=== PATIENT | male | born 1990 | race Caucasian/White ===

== ENCOUNTER 2024-05-22 16:24 | Emergency (ER) | payer MEDICAID, SELFPAY ==
[2024-05-22 16:41] VITALS: BP 158/80; PULSE 74; RESP 18; TEMP 36.8; O2SAT 98
--- NOTE | 2024-05-22 17:27 | DI.RAD_ITS ---
Exam(s) XR SHOULDER LT COMPLETE 2+V EXAM: XR SHOULDER LT COMPLETE 2+V CLINICAL HISTORY: L shoulder pain. TECHNIQUE: 2D digital imaging was performed. Five views. COMPARISON: No exams were available for comparison FINDINGS: BONES: No acute fracture is present. No bony destructive lesion is seen. JOINTS: No dislocation present. SOFT TISSUE: Normal. IMPRESSION: Unremarkable radiographs of the left shoulder. DATA REPOSITORY: RADIATION DOSE DELIVERED:
--- NOTE | 2024-05-22 17:58 | ED.GENADUL_ITS ---
Discharge Plan Disposition Patient Disposition: Home Condition: Stable Discharge Details Clinical Impression: Rotator cuff arthropathy of left shoulder Primary Care Provider: Garett Lujan ED Provider: Mateus Abad Home Meds and New Rx's Prescriptions: No Action No Known Home Meds Discharge Instructions Instructions: Rotator cuff injury Additional Instructions: You were seen in the emergency department for your rotator cuff arthropathy of your left shoulder. Please use therapeutic dosing of Tylenol (acetamenophen) & Advil (ibuprofen) in an alternating fashion as follows: Take 1000mg of Tylenol every 6 hours without missing doses- that is 4 times per day. Tow in between the Tylenol dosings, take 400-600mg of Advil also on a 6 hour schedule, that is also 4 times per day. The daily maximum dosing of Tylenol is 4000mg, and the daily maximum dosing of Advil is 2400mg. This is safe to do for weeks. Please note that some common cold medications & prescription pain medications may contain acetamenophen and you need to read OTC drug labels and factor that in to maximum daily dosings. Use the provided shoulder immobilizer sparsely but you need to come out of it and perform pendulum exercises as we discussed at least a dozen times per day. I have placed you on the orthopedics follow-up list they should be contacting you about scheduling a specialty evaluation. Please rest and ice the shoulder frequently. Return for signs of neurovascular compromise to the entire left arm Referrals: [facility] [Provider Group] Discharge Data Discharge Date/Time-TO BE ENTERED AT DEPARTURE: 05/22/24 18:52 HPI General Date/Time Provider Initiated Documentation: 05/22/24 16:43 . HPI Narrative: 34 year-old male presents to ED today by POV/ambulating with a chief complaint of L shoulder pain with onset today while lifting a panel of sheetrock- felt his shoulder give out. Patient is R-hand dominant. Quality described as severe pain diffusely all around the shoulder with weakness and limited range of motion to pain, no radiation to deformity, bruising, skin changes, redness, numbness or tingling down the arm, midline neck pain, trauma, endorses focal pain and mild swelling around the scapula and trapezius muscle. Severity is described as severe. Palliating factors include tried icing it and taking Tylenol and ibuprofen. Provoking factors include movement especially lifting his arm. Events leading up to the incident/Associated Symptoms: Patient states he had an old injury many years ago that limited his overhead range of motion and this 1 is now limiting his motion out in front of the body. Patient not anticoagulated. Related Data Home Medications ?Medication ?Instructions ?Recorded ?Confirmed Unknown [No Known Home Meds] 05/22/24 05/22/24 Allergies Allergy/AdvReac Type Severity Reaction Status Date / Time Penicillins Allergy Severe Swelling/Ed Unverified 05/22/24 16:43 aissatou venom-honey bee (bee venom Allergy Intermediate Anaphylaxsi Unverified 05/22/24 16:43 (honey bee)) s cat Allergy Intermediate Skin Rash Uncoded 05/22/24 16:43 General Stated Complaint: Orthopedic CARITO: 4 Review of Systems All systems reviewed & are unremarkable except as noted in HPI and below Exam Narrative Exam Narrative: GENERAL APPEARANCE: Well-nourished, non-toxic, awake and alert, atraumatic, no acute distress. SKIN: Warm, pink, dry, intact, without rashes/lesions/ulcerations. HEAD: Normocephalic, atraumatic, normal hair distribution for gender/age. EYES: Normal conjunctiva, no exudates on lids/lashes. ENT: Nares patent, no circumoral cyanosis, no facial swelling NECK: Supple, trachea midline, painless cervical ROM. LUNGS/CHEST: Non-labored respirations, normal A/P diameter, symmetrical expansion, no chest wall deformity HEART (CV/PV): No peripheral edema, no JVD. ABDOMEN: Soft, non-distended, no guarding. MSK: Normal ROM, no swelling/deformity to bilateral UEs or LEs, moving all extremities without weakness, no cyanosis, spine midline without tenderness, normal curvature. L SHOULDER: No squared off appearance or deformity of shoulder, diffuse tenderness all around the shoulder including the scapula and trapezius muscle, deltoid insertion tenderness, sensation intact down the arm, left radial pulse 2+, physical medicine specialist strength 5/5, Speed's Test positive, patient can barely pronate for empty can testing NEURO: Mental Status AAOx4 - alert to person, place, time, events No facial droop, no forehead involvement. Motor: No focal weakness - strength 5/5 in bilateral LEs and R UE, proximal and distal, symmetric. Sensory: sensation intact to light touch globally. Gait normal: patient ambulated without ataxia into ED room. PSYCH: euthymic, cooperative, pleasant, appropriate speech Course Vital Signs Vital signs: Vital Signs Temperature 36.8 C 05/22/24 16:41 Pulse 74 05/22/24 16:41 Respiratory Rate 18 05/22/24 16:41 Blood Pressure 158/80 H 05/22/24 16:41 Pulse Oximetry 98 05/22/24 16:41 Temperature 36.8 C 05/22/24 16:41 Temperature Source Oral 05/22/24 16:41 Pulse 74 05/22/24 16:41 Respiratory Rate 18 05/22/24 16:41 Blood Pressure 158/80 H 05/22/24 16:41 Blood Pressure Position Sitting 05/22/24 16:41 Pulse Oximetry 98 05/22/24 16:41 Oxygen Delivery Method Room Air 05/22/24 16:41 Oxygen Flow Rate 0 05/22/24 16:41 Pain Level 6 05/22/24 16:41 Medical Decision Making This dictation utilizes [id number] dictation software and may contain unedited grammatical errors. 34 year-old male presents to ED today by POV/ambulating with a chief complaint of L shoulder pain with onset today while lifting a panel of sheetrock- felt his shoulder give out. Patient is R-hand dominant. Quality described as severe pain diffusely all around the shoulder with weakness and limited range of motion to pain, no radiation to deformity, bruising, skin changes, redness, numbness or tingling down the arm, midline neck pain, trauma, endorses focal pain and mild swelling around the scapula and trapezius muscle. Severity is described as severe. Palliating factors include tried icing it and taking Tylenol and ibuprofen. Provoking factors include movement especially lifting his arm. Events leading up to the incident/Associated Symptoms: Patient states he had an old injury many years ago that limited his overhead range of motion and this 1 is now limiting his motion out in front of the body. Patients' medical history: [ ]. Family and social history: [ ]. Pertinent exam findings / vital signs include L SHOULDER: No squared off appearance or deformity of shoulder, diffuse tenderness all around the shoulder including the scapula and trapezius muscle, deltoid insertion tenderness, sensation intact down the arm, left radial pulse 2+, physical medicine specialist strength 5/5, Speed's Test positive, patient can barely pronate for empty can testing. Differential / pathologies of concern include rotator cuff arthropathy, severe sprain, unlikely fracture, not neurovascular compromise. Diagnostic studies of: -XR L shoulder-shows no acute fracture. Interventions of: -Shoulder immobilizer but counseled this was only for comfort for the first couple days and he needs to remove this often at least a dozen times per day for pendulum exercises, recommend RICE therapy and therapeutic dosing Tylenol and ibuprofen -Placed on Ortho follow-up list. ED Course/Assessment/Plan: 34-year-old male presents with left shoulder rotator cuff arthropathy, negative for fracture on x-ray, clinically no signs of neurovascular compromise, needs follow-up with orthopedics, recommend RICE therapy and therapeutic dosing of Tylenol or Profen, strict return criteria for signs of infection or neurovascular compromise. Findings not consistent with severe trauma, neurovascular compromise. Disposition of rotator cuff arthropathy of left shoulder. Patient verbalized understanding of the plan and return to ED criteria and engaged in shared decision making. Medical Records Medical records reviewed: Yes I reviewed the patient's medical records. Imaging Data Radiologic Study: Attestation: I personally reviewed and interpreted this imaging study as follows: Imaging: X-Ray Radiologist's impression: EXAM: XR SHOULDER LT COMPLETE 2+V CLINICAL HISTORY: L shoulder pain. TECHNIQUE: 2D digital imaging was performed. Five views. COMPARISON: No exams were available for comparison FINDINGS: BONES: No acute fracture is present. No bony destructive lesion is seen. JOINTS: No dislocation present. SOFT TISSUE: Normal. IMPRESSION: Unremarkable radiographs of the left shoulder. Quality:SDOH Health Related Social Needs: No Data to Display PFSH All Active Problems (Updated 05/22/24 @ 18:18 by MARJ Bedoya) Rotator cuff arthropathy of left shoulder (Acute) Sprain of anterior cruciate ligament of left knee (Chronic) Unspecified tear of unspecified meniscus, current injury, left knee, subsequent encounter (Chronic) Social History Smoking/Tobacco Use Status: Current every day Tobacco Type: cigarettes Smoking risk assessment performed?: Yes Drug use: Never Substance use type: does not use Do you feel safe in your relationship?: Yes
[2024-05-22 18:52] VITALS: PULSE 77; RESP 16; O2SAT 100
== END 2024-05-22 18:52 | disposition home or self-care (01) ==
PROVIDERS: Emergency Provider Physician Assistant; PCP Orthopaedic Surgery
DX: M12.812 Other specific arthropathies, not elsewhere classified, left shoulder (principal); F17.210 Nicotine dependence, cigarettes, uncomplicated; X50.0XXA Overexertion from strenuous movement or load, initial encounter; Y93.89 Activity, other specified; Y92.69 Other specified industrial and construction area as the place of occurrence of the external cause; Y99.0 Civilian activity done for income or pay
CPT/HCPCS: 99283; 73030

== ENCOUNTER 2024-06-19 10:38 | Outpatient (CLI) | payer MEDICAID, SELFPAY ==
--- NOTE | 2024-06-19 09:45 | DI.MRI_ITS ---
Exam(s) MR UPPER JOINT LT WO EXAM: MR UPPER JOINT LT WO CLINICAL HISTORY: L SHOULDER INJURY,traumatic tear lt rotator cuff,s46.012a. TECHNIQUE: Multiplanar multisequence MRI was performed. COMPARISON: CR XR SHOULDER LT COMPLETE 2+V from 05/22/2024 FINDINGS: BONES: There is no fracture or contusion pattern. JOINTS: The acromioclavicular joint is normal. The glenohumeral joint is normal. TENDONS: Supraspinatus: Unremarkable. Infraspinatus: Unremarkable. Subscapularis: Unremarkable. Teres [place]: Unremarkable. Biceps and [place]: Unremarkable. MUSCLES: Unremarkable. GLENOID LABRUM: Unremarkable on this noncontrast examination. SOFT TISSUES: Unremarkable. LIGAMENTS: Unremarkable. OTHER: There is a small amount of fluid seen in the subacromial bursa. IMPRESSION: 1. No evidence of a rotator cuff or labral tear on this noncontrast examination. 2. Small amount of fluid seen in the subacromial bursa. DATA REPOSITORY:
== END 2024-06-19 10:58 ==
LOC: DI 10:39
PROVIDERS: Visit Provider Student in an Organized Health Care Education/Training Program
DX: S46.012A Strain of muscle(s) and tendon(s) of the rotator cuff of left shoulder, initial encounter (principal); X58.XXXA Exposure to other specified factors, initial encounter
CPT/HCPCS: 73221

== ENCOUNTER 2024-12-19 19:32 | Emergency (ER) | payer MEDICAID, SELFPAY ==
[2024-12-19 19:33] VITALS: BP 158/88; PULSE 68; RESP 20; TEMP 36.7; O2SAT 97
--- NOTE | 2024-12-19 19:53 | ED.GENADUL_ITS ---
Discharge Plan Disposition Patient Disposition: Home Condition: Stable Discharge Details Clinical Impression: Laceration of cheek, left Primary Care Provider: Unknown,Unknown ED Provider: Debra Sellers Home Meds and New Rx's Prescriptions: No Action No Known Home Meds Discharge Instructions Instructions: Laceration Repair With Glue ED, Head injury observation in adults Additional Instructions: Laceration was closed with Dermabond or tissue adhesive today. This will slough off on its own in about 4 to 6 days. Do not scrub at or pick at the area. Keep clean and dry. Return to the ER for any signs of infection including increased redness, red streaks drainage swelling fever or increased pain. Follow up with primary care provider in 3-5 days. Return to ED sooner if any worsening vomiting, headache, blurry vision, confusion or concerns. You were given a tetanus booster today. Thank you for allowing us to care Continue to apply ice for 20 minutes up to 3 times daily as needed Stand Alone Forms: Work Release HPI General Mode of arrival: ambulatory . Date/Time Provider Initiated Documentation: 12/19/24 19:40 . Limitations to Documentation: no limitations . Information obtained by: patient, RN notes reviewed and old records reviewed . HPI Narrative: 34-year-old male presents to the ER with a chief complaint of left cheek injury. Patient stepped in a hole tripped hitting the left side of his face on the backside of a lawnmower. Denies any loss of consciousness, denies any visual disturbances denies any headache. He reports that it did bleed initially. Bleeding is controlled upon arrival. He does have some surrounding ecchymosis and swelling to the area. He has a small 1 cm laceration which is horizontal and linear. Small amount of redness and swelling noted to the outer canthus of the left eye. EOMs are intact. Denies any neck pain. Last tetanus vaccination was 10 years ago. Related Data Home Medications ?Medication ?Instructions ?Recorded ?Confirmed Unknown [No Known Home Meds] 05/22/24 0 12/19/24 Allergies Allergy/AdvReac Type Severity Reaction Status Date / Time Penicillins Allergy Severe Swelling/Ed Unverified 12/19/24 19:40 aissatou venom-honey bee (bee venom Allergy Intermediate Anaphylaxsi Unverified 12/19/24 19:40 (honey bee)) s cat Allergy Intermediate Skin Rash Uncoded 12/19/24 19:40 General Stated Complaint: HeadInjury CARITO: 4 Review of Systems Constitutional Constitutional: Denies headache(s) Eyes Eyes: Denies loss of vision ENT Ears, Nose, Mouth, and Throat: Denies dizziness and Denies headache(s) Musculoskeletal Musculoskeletal: Denies numbness Integumentary/Breasts Skin/Breast: Reports as per HPI and Reports wounds Neurologic Neurologic: Reports as per HPI, Denies dizziness, Denies headache(s), Denies localized weakness, Denies loss of vision, Denies memory loss, Denies numbness and Denies convulsions Psychiatric Psychiatric: Denies memory loss Exam Narrative Exam Narrative: General: Well Developed, Awake and Alert, conversant. Skin: Warm and Dry HEENT: Head: No palpable deformities, Normocephalic Eyes: Pupils PERRLA, EOM's intact. No periorbital eccymosis or step off Ears: Canal patent. Tympanic membranes are clear . No muse's sign, no hemptympanum. Nose/Face: Laceration noted to left cheek, with surrounding swelling and ecchymosis. Bleeding controlled. Facial bones nontender to palpation and stable with manipulation. Mouth/Throat: No intraoral trauma. Teeth and mandible are intact. Neck: No midline tenderness, no step off, no deformity to palpation of C-spine. Trachea midline. Chest: No surface trauma. Nontender without crepitus or deformity. Lungs clear to ausculatation bilaterally. Heart: RRR, no rubs, murmurs or gallop. Abdomen: No abrasions, ecchymosis, or surface trauma. Nondistended. Nontender to palpation no guarding, rebound, or rigidity. Pelvis: Nontender to palpation and stable to compression. Femoral pulses strong and equal Extremities: no surface trauma. Sensation intact. Peripheral pulses intact and equal. Neuro: ANO x4, GCS 15, cranial nerves II through XII intact. Motor and sensory exam nonfocal. Reflexes are symmetric. Course Vital Signs Vital signs: Vital Signs Temperature 36.7 C 12/19/24 19:33 Pulse 68 12/19/24 19:33 Respiratory Rate 20 12/19/24 19:33 Blood Pressure 158/88 H 12/19/24 19:33 Pulse Oximetry 97 12/19/24 19:33 Temperature 36.7 C 12/19/24 19:33 Temperature Source Tympanic 12/19/24 19:33 Pulse 68 12/19/24 19:33 Respiratory Rate 20 12/19/24 19:33 Blood Pressure 158/88 H 12/19/24 19:33 Blood Pressure Position Sitting 12/19/24 19:33 Pulse Oximetry 97 12/19/24 19:33 Oxygen Delivery Method Room Air 12/19/24 19:33 Oxygen Flow Rate 0 12/19/24 19:33 Medical Decision Making 34-year-old male presents to the ER with a chief complaint of left cheek injury. Patient stepped in a hole tripped hitting the left side of his face on the backside of a lawnmower. Denies any loss of consciousness, denies any visual disturbances denies any headache. He reports that it did bleed initially. Bleeding is controlled upon arrival. He does have some surrounding ecchymosis and swelling to the area. He has a small 1 cm laceration which is horizontal and linear. Small amount of redness and swelling noted to the outer canthus of the left eye. EOMs are intact. Denies any neck pain. Last tetanus vaccination was 10 years ago. At this time due to low mechanism of injury no loss of consciousness no vomiting no crepitus or step-off palpated imaging deferred. Will give a tetanus booster, cleaning area with chlorhexidine and saline, apply Dermabond skin adhesive. Discussed plan of care and treatment with patient who verbalized understanding. Laceration repaired with Dermabond by staff. Patient tolerated well. Evening instructions for home care and strict return instructions. This text was generated using [employer] system, please disregard any oddities of phrase or misspellings. PFSH All Active Problems (Updated 12/19/24 @ 20:02 by Debra Sellers NP) Laceration of cheek, left (Acute) Cervicalgia (Acute) Sprain of anterior cruciate ligament of left knee (Chronic) Unspecified tear of unspecified meniscus, current injury, left knee, subsequent encounter (Chronic) Social History Smoking/Tobacco Use Status: Current every day Tobacco Type: cigarettes Smoking risk assessment performed?: Yes Drug use: Never Substance use type: does not use Do you feel safe in your relationship?: Yes
[2024-12-19] MEDS: Diph,Pertuss(Acell),Tet Vac/Pf 0.5 ML SYR IM (19:58)
== END 2024-12-19 20:25 | disposition home or self-care (01) ==
PROVIDERS: Emergency Provider Registered Nurse Emergency
DX: S01.412A Laceration without foreign body of left cheek and temporomandibular area, initial encounter (principal); W01.118A Fall on same level from slipping, tripping and stumbling with subsequent striking against other sharp object, initial encounter; Z23 Encounter for immunization
CPT/HCPCS: 12011; 90471; 90715